=== PATIENT | male | born 1990 | race Caucasian/White ===

== ENCOUNTER 2024-04-16 14:44 | Emergency (ER) | payer OTHER, MEDICAID ==
[~2024-04-16] VITALS: Ht 175.3 cm; Wt 77.1 kg
[2024-04-16 14:53] VITALS: BP_SYST 135; PULSE 144; RESP 18; TEMP 98.3; O2SAT 94
[2024-04-16] MEDS ORDERED: NABU-140 PO (15:47)
[2024-04-16 16:10] VITALS: BP_SYST 135; PULSE 144; RESP 18; TEMP 98.3; O2SAT 94
== END 2024-04-16 16:06 | disposition home or self-care (01) ==
LOC: SED 14:44
DX: S82.832G Other fracture of upper and lower end of left fibula, subsequent encounter for closed fracture with delayed healing (principal); Y83.8 Other surgical procedures as the cause of abnormal reaction of the patient, or of later complication, without mention of misadventure at the time of the procedure; Y93.89 Activity, other specified; Y92.89 Other specified places as the place of occurrence of the external cause; Y99.8 Other external cause status
CPT/HCPCS: 99283